=== PATIENT | female | born 1955 | race Caucasian/White ===

== ENCOUNTER 2020-04-14 08:20 | Outpatient (CLI) | payer MEDICARE, SELFPAY ==
[2020-04-14 08:55] LABS: Basophils Absolute Auto 0.1 K/mm3 (0.0-0.1); Basophils Percent Auto 1.2 % (0.2-1.2); Eosinophils Absolute Auto 0.2 K/mm3 (0-0.3); Eosinophils Percent Auto 1.7 % (0-4.4); Hematocrit 51.4 % (37.0-47.0); Hemoglobin 17.8 g/dL (12.0-15.0); Immature Granulocyte Absolute 0.03 K/mm3 (0.00-0.031); Immature Granulocyte Percent A 0.3 % (0-0.5); Lymphocytes Absolute Auto 3.52 K/mm3 (0.9-3.2); Mean Corpuscular HGB Conc 34.6 g/dl (32-36); Mean Corpuscular Hemoglobin 30.2 pg (26-34); Mean Corpuscular Volume 87.3 fl (80-100); Monocytes Absolute Auto 0.7 K/mm3 (0.1-0.6); Monocytes Percent Auto 7.9 % (2.6-8.5); Neutrophils Absolute Auto 4.3 K/mm3 (1.3-6.7); Neutrophils Percent Auto 48.9 % (45.5-73.1); Platelet Count Result 191 k/mm3 (150-375); Red Blood Count 5.89 M/mm3 (4.2-5.4); Red Cell Distribution Width 12.7 % (11.5-14.5); White Blood Count 8.8 K/mm3 (4.5-10.0)
[2020-04-14 08:57] LABS: Alanine Aminotransferase 31 U/L (4-35); Albumin Level 4.4 g/dL (3.5-5.1); Alkaline Phosphatase 125 U/L (38-126); Anion Gap 9 mmol/L (8-16); Aspartate Amino Transferase 29 U/L (14-36); Bilirubin,Total 0.9 mg/dL (0.2-1.3); Blood Urea Nitrogen 29 mg/dL (7-17); Calcium 9.9 mg/dL (8.4-10.2); Carbon Dioxide 30 mmol/L (22-30); Chloride 97 mmol/L (98-107); Cholesterol 142 mg/dL (0-200); Estimated Glomerular Filt Rate 56; Glucose 179 mg/dL (65-105); HDL Direct 46 mg/dL; Potassium 3.4 mmol/L (3.4-5.0); Sodium 136 mmol/L (137-145); Triglycerides 317 mg/dL (<150)
[2020-04-14 08:58] LABS: Hemoglobin A1C 6.6 % (<5.7)
[2020-04-14 09:01] LABS: Add Urine Microscopic? YES; Appearance Urine Clear (Clear); Bacteria Urine 1+ /hpf; Bilirubin Urine Negative (Negative); Blood Urine Negative (Negative); Color Urine Yellow (Yellow); Glucose Urine UA 3+ mg/dL (Negative); Ketones Urine Negative (Negative); Leukocyte Esterase Ur Negative LEU/UL (NEGATIVE); Mucus Urine Rare /lpf; Nitrate Urine Negative (Negative); Protein Urine Negative (Negative); RBC Urine 0-2 /hpf (0-2); Specific Grav Ur 1.022 (1.001-1.035); Squamous Epithelial Cell Urine Many /hpf (Few); Urobilinogen Urine Negative mg/dL (<2.0)
[2020-04-14 09:08] LABS: LDL Cholesterol Direct 38 mg/dL
[2020-04-14 09:27] LABS: Thyroid Stimulating Hormone < 0.015 uIU/mL (0.465-4.680)
[2020-04-14 09:43] LABS: Free T4 Free Thyroxine 2.98 ng/mL (0.78-2.19); Vitamin D 25 Hydroxy 37.9 ng/mL
== END 2020-04-14 08:21 | disposition home or self-care (01) ==
PROVIDERS: PCP Internal Medicine; Visit Provider Internal Medicine
DX: E11.9 Type 2 diabetes mellitus without complications (principal); Z79.899 Other long term (current) drug therapy; E78.2 Mixed hyperlipidemia; Z90.5 Acquired absence of kidney
CPT/HCPCS: 36415; 80053; 80061; 81001; 82306; 83036; 83090; 84439; 84443; 85025

== ENCOUNTER 2020-05-18 09:11 | Outpatient (CLI) | payer MEDICARE, SELFPAY ==
[2020-05-18 10:09] LABS: Basophils Absolute Auto 0.1 K/mm3 (0.0-0.1); Basophils Percent Auto 1.2 % (0.2-1.2); Eosinophils Absolute Auto 0.2 K/mm3 (0-0.3); Eosinophils Percent Auto 2.1 % (0-4.4); Hematocrit 45.9 % (37.0-47.0); Hemoglobin 16.1 g/dL (12.0-15.0); Immature Granulocyte Absolute 0.04 K/mm3 (0.00-0.031); Immature Granulocyte Percent A 0.5 % (0-0.5); Lymphocytes Absolute Auto 1.89 K/mm3 (0.9-3.2); Lymphocytes Percent Auto 22.9 % (18.3-44.2); Mean Corpuscular HGB Conc 35.1 g/dl (32-36); Mean Corpuscular Hemoglobin 30.1 pg (26-34); Mean Corpuscular Volume 85.8 fl (80-100); Mean Platelet Volume 11.8 fl (7.4-10.4); Monocytes Absolute Auto 0.5 K/mm3 (0.1-0.6); Monocytes Percent Auto 5.5 % (2.6-8.5); Neutrophils Absolute Auto 5.6 K/mm3 (1.3-6.7); Neutrophils Percent Auto 67.8 % (45.5-73.1); Platelet Count Result 169 k/mm3 (150-375); Red Blood Count 5.35 M/mm3 (4.2-5.4); Red Cell Distribution Width 12.8 % (11.5-14.5); White Blood Count 8.3 K/mm3 (4.5-10.0)
[2020-05-18 10:21] LABS: Anion Gap 8 mmol/L (8-16); Blood Urea Nitrogen 29 mg/dL (7-17); Calcium 9.5 mg/dL (8.4-10.2); Carbon Dioxide 27 mmol/L (22-30); Chloride 103 mmol/L (98-107); Estimated Glomerular Filt Rate > 60; Glucose 183 mg/dL (65-105); Potassium 4.6 mmol/L (3.4-5.0); Sodium 138 mmol/L (137-145)
[2020-05-18 10:48] LABS: Free T4 Free Thyroxine 2.03 ng/mL (0.78-2.19)
[2020-05-18 10:49] LABS: Thyroid Stimulating Hormone < 0.015 uIU/mL (0.465-4.680)
== END 2020-05-18 09:12 | disposition home or self-care (01) ==
PROVIDERS: PCP Internal Medicine; Visit Provider Internal Medicine
DX: E03.9 Hypothyroidism, unspecified (principal); I10 Essential (primary) hypertension
CPT/HCPCS: 36415; 80048; 84439; 84443; 85025

== ENCOUNTER 2020-05-20 00:57 | Outpatient (CLI) | payer MEDICARE, SELFPAY ==
[2020-05-21 18:46] LABS: SARS-CoV-2 RNA PCR Negative
== END 2020-05-20 00:58 | disposition home or self-care (01) ==
LOC: ANHCOVIDDT 00:57
PROVIDERS: PCP Internal Medicine; Visit Provider Internal Medicine Critical Care Medicine
DX: Z01.812 Encounter for preprocedural laboratory examination (principal); Z20.822 Contact with and (suspected) exposure to COVID-19
CPT/HCPCS: C9803; U0003; U0005

== ENCOUNTER 2020-05-23 01:38 | Outpatient (CLI) | payer MEDICARE, SELFPAY ==
--- NOTE | 2020-06-25 16:17 | WPDSLEEPSTUD ---
Sleep Study Date of Study: 05/23/20 Ordering Provider: Js Snyder MD Interpreting Physician: Rashad Leigh MD Sleep Study Type: Split Polysomnogram Height: 1.55 m Weight: 87.997 kg Body Mass Index: 36.6 Neck Circumference: 38.1 cm Scenic: 7 Reason for Sleep Study Symptoms consistent with obstructive sleep apnea and significant comorbidities including diabetes type 2, resistant hypertension and obesity. Sleep History History of loud disruptive snoring, fragmented sleep with repeated arousals, Non restorative sleep and daytime sleepiness and fatigue. [facility] Past Medical History Medical History (Updated 06/07/20 @ 11:56 by Surekha Shukla [facility]) Amblyopia Benign essential hypertension BMI 35.0-35.9,adult Colon cancer screening Encounter for Medicare annual wellness exam Encounter for routine adult health examination with abnormal findings Encounter for screening mammogram for malignant neoplasm of breast Gastroesophageal reflux disease without esophagitis Hirsutism Hx of colonic polyps Hx of renal cell cancer Hypersomnolence Hypothyroidism Mixed hyperlipidemia On intermodal truck driver drug therapy Strabismus Type 2 diabetes mellitus without complication, without long-term current use of insulin Weakness of left hand Surgical History Surgical History History of nephrectomy Family History Family History Mother Cerebrovascular accident Family history of diabetes mellitus in first degree relative Hypertension Diabetes mellitus Father Family history of heart disease in male family member before age 55 Family history of cardiovascular disease Social History Social History Smoking status: Never smoker Alcohol intake: never Medications Home Medications Medication Instructions Recorded Confirmed Type pantoprazole 40 mg tablet,delayed 40 mg PO BID #180 tablet 08/21/19 06/07/20 Rx release rosuvastatin 40 mg tablet See Rx Instructions .ROUTE 02/17/20 06/07/20 Rx .COMPLEX #90 tablet amlodipine 5 mg tablet 5 mg PO DAILY #90 tablet 04/18/20 06/07/20 Rx carvedilol 25 mg tablet 25 mg PO Q12H #180 tablet 04/18/20 06/07/20 Rx omega-3 fatty acids 1,000 mg 2,000 mg PO BID cap 04/18/20 06/07/20 History capsule telmisartan 40 mg tablet 40 mg PO DAILY #90 tablet 04/18/20 06/07/20 Rx cyanocobalamin (vitamin B-12) 1,000 mcg PO DAILY 04/22/20 06/07/20 History 1,000 mcg tablet folic acid 800 mcg tablet 0.8 mg PO DAILY 04/22/20 06/07/20 History empagliflozin 25 mg-linagliptin 5 See Rx Instructions .ROUTE 05/17/20 06/07/20 Rx mg tablet .COMPLEX #90 tablet levothyroxine 112 mcg tablet 112 mcg PO DAILY #90 tablet 05/19/20 06/07/20 Rx hydrochlorothiazide 25 mg tablet See Rx Instructions .ROUTE 06/16/20 Rx .COMPLEX #90 tablet Sleep Procedure Patient underwent overnight polysomnographic study using a split night protocol. Sleep Architecture Diagnostic study - Total recording time 167 minutes, total sleep time 149 minutes, sleep efficiency 89.4%. Sleep latency 9 minutes, REM latency 87 minutes. Awake after sleep onset 8.5 minutes, stage N1 9.7%, N2 82.2%, N3 0%, stage R 8.1%. Supine sleep 4.7%, supine REM sleep 0% Treatment study- Total recording time 198 minutes, total sleep time 94 minutes, sleep efficiency 47.6% which is poor. Sleep latency 70 minutes, there was no REM sleep during positive airway pressure titration. Awake after sleep onset 34 minutes, stage N1 9%, N2 91%, stage N3 and stage R 0%. Supine sleep 0.2%. Respiratory Analysis [facility] criteria used. Diagnostic study - there were no apneas, 19 hypopneas with index 7.6, AHI 7.6 Treatment study - there were 17 apneas, 10 obstructive and 7 central. Apnea index 10.8, hypopneas 24 with index 15.2. AHI 26. Arousals diagnostic study - total arousals 32 w
[2020-06-25 16:42] VITALS: BMI 36.6
== END 2020-05-23 01:39 | disposition home or self-care (01) ==
LOC: ANHCSM 01:40
PROVIDERS: PCP Internal Medicine; Visit Provider Internal Medicine
DX: G47.10 Hypersomnia, unspecified (principal); G47.33 Obstructive sleep apnea (adult) (pediatric); E11.9 Type 2 diabetes mellitus without complications; I10 Essential (primary) hypertension
CPT/HCPCS: 95811

== ENCOUNTER 2020-07-05 14:45 | Outpatient (CLI) | payer MEDICARE, SELFPAY ==
--- NOTE | ~2020-07-05 | MM_ITS ---
EXAMINATION: MM screening pavel BI w tyrese HISTORY: Screening TECHNIQUE: Craniocaudal and mediolateral oblique 3-D tomosynthesis images were obtained and synthetic 2-D images were generated. CAD analysis was submitted and interpreted. COMPARISON: Comparison to multiple prior studies sequentially, with oldest reviewed study dated 06/19. BREAST PARENCHYMAL COMPOSITION: There are scattered areas of fibroglandular density. FINDINGS: There is no evidence of suspicious mass, calcification, or architectural distortion to sugg est malignancy in either breast. There has been no suspicious interval change. IMPRESSION: 1. No mammographic evidence of malignancy. 2. Recommend routine screening mammography in one year. BI-RADS Category 1: Negative Reviewed, dictated and finalized at location A. [facility]
== END 2020-07-05 14:46 | disposition home or self-care (01) ==
LOC: ANHIMG 14:47
PROVIDERS: PCP Internal Medicine; Visit Provider Internal Medicine
DX: Z12.31 Encounter for screening mammogram for malignant neoplasm of breast (principal)
CPT/HCPCS: 77063; 77067

== ENCOUNTER 2021-04-25 13:39 | Outpatient (CLI) | payer MEDICARE, SELFPAY ==
[2021-04-25 14:03] LABS: Basophils Absolute Auto 0.1 K/mm3 (0.0-0.1); Basophils Percent Auto 0.8 % (0.2-1.2); Eosinophils Absolute Auto 0.2 K/mm3 (0-0.3); Eosinophils Percent Auto 1.7 % (0-4.4); Hematocrit 45.9 % (37.0-47.0); Hemoglobin 16.4 g/dL (12.0-15.0); Immature Granulocyte Absolute 0.03 K/mm3 (0.00-0.031); Immature Granulocyte Percent A 0.3 % (0-0.5); Lymphocytes Absolute Auto 2.59 K/mm3 (0.9-3.2); Lymphocytes Percent Auto 29.8 % (18.3-44.2); Mean Corpuscular HGB Conc 35.7 g/dl (32-36); Mean Corpuscular Volume 86.8 fl (80-100); Mean Platelet Volume 11.5 fl (7.4-10.4); Monocytes Absolute Auto 0.7 K/mm3 (0.1-0.6); Monocytes Percent Auto 7.7 % (2.6-8.5); Neutrophils Absolute Auto 5.2 K/mm3 (1.3-6.7); Neutrophils Percent Auto 59.7 % (45.5-73.1); Platelet Count Result 178 k/mm3 (150-375); Red Blood Count 5.29 M/mm3 (4.2-5.4); Red Cell Distribution Width 12.6 % (11.5-14.5); White Blood Count 8.7 K/mm3 (4.5-10.0)
[2021-04-25 14:20] LABS: Alanine Aminotransferase 25 U/L (4-35); Albumin Level 4.7 g/dL (3.5-5.1); Alkaline Phosphatase 144 U/L (38-126); Anion Gap 10 mmol/L (8-16); Aspartate Amino Transferase 24 U/L (14-36); Bilirubin,Total 1.2 mg/dL (0.2-1.3); Blood Urea Nitrogen 25 mg/dL (7-17); Calcium 9.6 mg/dL (8.4-10.2); Carbon Dioxide 26 mmol/L (22-30); Chloride 93 mmol/L (98-107); Cholesterol 150 mg/dL (0-200); Estimated Glomerular Filt Rate 56; Glucose 308 mg/dL (65-110); HDL Direct 55 mg/dL; Magnesium 1.6 mg/dL (1.6-2.3); Potassium 3.8 mmol/L (3.4-5.0); Sodium 129 mmol/L (137-145); Triglycerides 326 mg/dL (<150)
[2021-04-25 14:31] LABS: LDL Cholesterol Direct 40 mg/dL
[2021-04-25 14:47] LABS: Hemoglobin A1C 9.5 % (<5.7)
[2021-04-25 15:27] LABS: Folic Acid > 20.0 ng/mL (2.76->20); Vitamin B12 > 1000.0 pg/mL (239-931)
[2021-04-25 15:53] LABS: Free T4 Free Thyroxine 1.89 ng/mL (0.78-2.19); Vitamin D 25 Hydroxy 40.8 ng/mL
[2021-04-25 15:59] LABS: MALB Creatinine Ratio < 12.5 mg/g (0-30); Microalbumin Urine Random < 6.0 mg/L (0-16.7)
== END 2021-04-25 13:40 | disposition home or self-care (01) ==
PROVIDERS: PCP Internal Medicine; Visit Provider Internal Medicine
DX: I10 Essential (primary) hypertension (principal); E55.9 Vitamin D deficiency, unspecified; E03.9 Hypothyroidism, unspecified; E11.9 Type 2 diabetes mellitus without complications; E53.8 Deficiency of other specified B group vitamins; E78.2 Mixed hyperlipidemia; Z79.899 Other long term (current) drug therapy
CPT/HCPCS: 36415; 80053; 80061; 82043; 82306; 82607; 82746; 83036; 83735; 84439; 84443; 85025